=== PATIENT | female | born 1980 | race African-American/Black ===

== ENCOUNTER 2021-04-13 20:46 | Emergency (ER) | payer BC ==
[~2021-04-13] VITALS: Ht 152.4 cm; Wt 68.0 kg
[~2021-04-13 20:46] MED LIST: ALBUTEROL2.5 MG/32; BACTRIM DS TAB1 EACH PO; CLEOCIN HCL150 MG PO; FOLGARD TABLET1 EAC1; GENTAK 3 MG/M3 MG/M1 OP; K-DUR 20 MEQ T20 MEQ PO; NORCO 5-325 TA1 EACH PO; PHENERGAN 25 MG25 M1 PO; PHENERGAN50 MG RC
[2021-04-13 21:49] LABS: ABSOLUTE NEUTROPHILS 7.9 thou/uL (1.4-8.2); BASOPHILS 0.7 % (0.0-2.0); EOSINOPHILS 0.2 % (0.0-3.0); HEMATOCRIT 36.8 % (37.0-47.0); HEMOGLOBIN 12.3 gm/dL (12.0-15.0); LYMPHOCYTES 10.6 % (24.0-44.0); MCH 30.3 pg (26.0-34.0); MCHC 33.4 g/dL (28.0-37.0); MCV 90.6 fL (80.0-100.0); MONOCYTES 4.7 % (1.0-8.0); PLATELET COUNT 250 thou/uL (150-400); POLYS 83.8 % (36.0-66.0); RBC 4.06 mil/uL (4.20-5.00); RDW 13.9 % (10.5-14.5); WBC 9.5 thou/uL (4.0-11.0)
[2021-04-13 21:51] LABS: CALCIUM 8.7 mg/dL (8.5-10.1); CREATININE 0.7 mg/dL (0.6-1.0); POTASSIUM 3.1 mmol/L (3.5-5.1)
[2021-04-13 21:57] LABS: ALBUMIN 3.8 g/dL (3.4-5.0); DIRECT BILIRUBIN 0.1 mg/dL (<0.1-0.2); TOTAL BILIRUBIN 0.5 mg/dL (0.2-1.0); TOTAL PROTEIN 6.7 g/dL (6.4-8.2)
[2021-04-13] MEDS ORDERED: ONDANSETRON HCL4 M2 PO (22:20)
[2021-04-13] MEDS ORDERED: KLOR-CON M2020 MEQ PO (22:20)
[2021-04-13 22:31] VITALS: BP 108/65
== END 2021-04-13 22:31 | disposition home or self-care (01) ==
LOC: ER 20:46
PROVIDERS: Nurse Practitioner
DX: R11.2 Nausea with vomiting, unspecified (principal); Z20.822 Contact with and (suspected) exposure to COVID-19; Z79.899 Other long term (current) drug therapy; Z79.891 Long term (current) use of opiate analgesic